=== PATIENT | female | born 2000 | race African-American/Black ===

== ENCOUNTER 2021-08-09 23:18 | Emergency (ER) | payer OTHER ==
[~2021-08-09] VITALS: Ht 160 cm; Wt 53.2 kg
[2021-08-09 23:24] VITALS: BP 118/62
[2021-08-10] MEDS ORDERED: KETOROLAC 60MG 2ML VIAL IM ONE (03:25)
[2021-08-10] MEDS ORDERED: KETO10TAB PO (04:25)
== END 2021-08-10 04:59 | disposition home or self-care (01) ==
LOC: M ED 23:18
DX: R51.9 Headache, unspecified (principal); M54.2 Cervicalgia; M62.838 Other muscle spasm
CPT/HCPCS: 70450; 72125; 96372; 99284; J1885